=== PATIENT | male | born 1940 | race Caucasian/White ===

== ENCOUNTER 2023-10-17 13:26 | Outpatient (AMB) | payer OTHER, SELFPAY ==
--- NOTE | 2023-10-17 13:23 | HO.NEPHOV ---
Vital Signs 10/17/23 13:35 Height 6 ft Weight 222 lb 6 oz BMI 30.2 BP 124/70 Blood Pressure Location Lt brachial Position Sitting Pulse 80 Pulse Source Pulse Oximeter Pulse Oximetry (%) 94 Oxygen Delivery Method Room Air Intake Visit Reasons: CKD/ Confirmed w/ Supply Officer Required: No Accompanied by: Self / Same As Patient Allergies acetaminophen [From Percocet] Allergy (Verified 10/17/23 13:38) Unknown oxycodone [From Percocet] Allergy (Verified 10/17/23 13:38) Unknown HPI Comments Details: I had the privilege of seeing Luisito in follow-up his chronic kidney disease and hypertension. He is known to have chronic lymphocytic leukemia which has been stable. He has no night sweats, weight loss, fever, chills, rigors, nausea, vomiting, diarrhea, urinary symptoms or pedal edema. He has been compliant with his medications. His blood pressure has been at goal. There were no new active complaints at the time this office visit. 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 Renal artery stenosis CKD (chronic kidney disease) stage 3, GFR 30-59 ml/min Hypertension Surgical History (Updated 10/17/23 @ 13:41 by Khalida Hernandez MA) History of ankle surgery History of surgery on arm History of lung biopsy History of tonsillectomy and adenoidectomy History of cholecystectomy Family History (Updated 10/17/23 @ 13:43 by Khalida Hernandez MA) Sister Diabetes Father Stroke Social History Alcohol intake: current Patient Tobacco Use Status: Never used Tobacco Physical Exam Vital Signs: Last Vital Signs Pulse 80 10/17/23 13:35 BP 124/70 10/17/23 13:35 Pulse Ox 94 10/17/23 13:35 Oxygen Delivery Method Room Air 10/17/23 13:35 BMI result Body Mass Index 30.2 Const General: comfortable and no acute distress Orientation/consciousness: patient oriented x3 HEENT Head: Yes normocephalic Mouth: Normal oral and palatal mucosa present Eyes EOM: EOMs intact bilaterally Neck Neck: Yes supple Resp Auscultation: clear to auscultation bilaterally Cardio Jugular venous distension: no JVD Rate: regular rate GI Palpation (GI): Soft to palpation Auscultation: normal bowel sounds General: Yes no CVA tenderness Back/Spine/Pelvis Back: no CVA tenderness Skin General skin exam: no rashes or lesions noted Neuro General: patient oriented x3 and moves all extremities Extrem General: Yes no pedal edema Results Reviewed Nephrology Results: No Data to Display Assessment & Plan Assessment & Plan (1) CKD (chronic kidney disease) stage 3, GFR 30-59 ml/min: Code(s): N18.30 - Chronic kidney disease, stage 3 unspecified Category: Medical Qualifiers: Chronic kidney disease stage 3 subtype: stage 3a (GFR 45-59) Qualified Code(s): N18.31 - Chronic kidney disease, stage 3a (2) Hypertension: Code(s): I10 - Essential (primary) hypertension Category: Medical Qualifiers: Hypertension type: renovascular hypertension Qualified Code(s): I15.0 - Renovascular hypertension (3) Renal artery stenosis: Code(s): I70.1 - Atherosclerosis of renal artery Category: Medical (4) 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 His chronic kidney disease stage 3 is stable. His last serum creatinine is 1.46. He has no proteinuria. His blood pressure has been at goal. He does not take excess salt in the diet. He avoids nonsteroidal anti-inflammatories and maintain good hydration. He has no side effects from his current medication regimen. I did not make any medication changes today. There is no indication for Doppler of his renal arteries at this moment in time. He is on statins. Follow-up lab work ordered. Follow-up appointment given. Orders: Orders Blood Urea Nitrogen Today I15.0 - Renovascular hypertension, I70.1 - Atherosclerosis of renal artery, N18.31 - Chronic kidney disease, stage 3a Creatinine Today I15.0 - Renovascular hypertension, I70.1 - Atherosclerosis of renal artery, N18.31 - Chronic kidney disease, stage 3a Electrolytes Today I15.0 - Renovascular hypertension, I70.1 - Atherosclerosis of renal artery, N18.31 - Chronic kidney disease, stage 3a Coding Level of Care Code Est Pt Level 4 (30102) Diagnoses Stage 3a chronic kidney disease N18.31 Chronic kidney disease stage 3 subtype: stage 3a (GFR 45-59) Renovascular hypertension I15.0 Hypertension type: renovascular hypertension Renal artery stenosis I70.1 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
[2023-10-17 13:35] VITALS: BP 124/70; PULSE 80; O2SAT 94; BMI 30.2
== END 2023-10-17 14:07 | disposition home or self-care (01) ==
PROVIDERS: Visit Provider Internal Medicine Nephrology
DX: N18.31 Chronic kidney disease, stage 3a (principal); I15.0 Renovascular hypertension; I70.1 Atherosclerosis of renal artery
CPT/HCPCS: 99214

== ENCOUNTER → 2023-10-17 13:26 | Outpatient (BNVA) | payer OTHER, SELFPAY | PROVIDERS: Visit Provider Internal Medicine Nephrology ==

== ENCOUNTER 2024-05-14 11:50 | Outpatient (AMB) | payer OTHER, SELFPAY ==
--- NOTE | 2024-05-14 11:53 | HO.NEPHOV_ITS ---
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 He is known to have chronic lymphocytic leukemia which has been stable. He has no night sweats, weight loss, fever, chills, rigors, nausea, vomiting, diarrhea, urinary symptoms or pedal edema. He has been compliant with his medications. His blood pressure has been at goal. He recently had COVID and took Paxalovid. He has lost some weight during that time. There were no new active complaints at the time this office visit. 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 Renal artery stenosis CKD (chronic kidney disease) stage 3, GFR 30-59 ml/min Hypertension Surgical History History of ankle surgery History of surgery on arm History of lung biopsy History of tonsillectomy and adenoidectomy History of cholecystectomy Family History Sister Diabetes Father Stroke Social History Alcohol intake: current Patient Tobacco Use Status: Never used Tobacco Review of Systems Const All systems reviewed & are unremarkable except as noted in HPI and below Physical Exam Const General: comfortable and no acute distress Orientation/consciousness: patient oriented x3 HEENT Head: Yes normocephalic Mouth: Normal oral and palatal mucosa present Eyes EOM: EOMs intact bilaterally Neck Neck: Yes supple Resp Auscultation: clear to auscultation bilaterally Cardio Jugular venous distension: no JVD Rate: regular rate GI Palpation (GI): Soft to palpation Auscultation: normal bowel sounds General: Yes no CVA tenderness Back/Spine/Pelvis Back: no CVA tenderness Skin General skin exam: no rashes or lesions noted Neuro General: patient oriented x3 and moves all extremities Extrem General: Yes no pedal edema Results Reviewed Nephrology Results: No Data to Display Assessment & Plan Assessment & Plan (1) 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 His chronic kidney disease stage 3 is stable. He has no proteinuria. His blood pressure has been at goal. He does not take excess salt in the diet. He avoids nonsteroidal anti- inflammatories and maintain good hydration. He has no side effects from his current medication regimen. I did not make any medication changes today. There is no indication for Doppler of his renal arteries at this moment in time. He is on statins. Follow-up lab work ordered. Orders: Orders Creatinine 6 Months I15.0 - Renovascular hypertension, I70.1 - Atherosclerosis of renal artery, N18.31 - Chronic kidney disease, stage 3a Calcium 6 Months I15.0 - Renovascular hypertension, I70.1 - Atherosclerosis of renal artery, N18.31 - Chronic kidney disease, stage 3a Blood Urea Nitrogen 6 Months I15.0 - Renovascular hypertension, I70.1 - Atherosclerosis of renal artery, N18.31 - Chronic kidney disease, stage 3a Electrolytes 6 Months I15.0 - Renovascular hypertension, I70.1 - Atherosclerosis of renal artery, N18.31 - Chronic kidney disease, stage 3a Protein Creatinine Ratio, Ur 6 Months I15.0 - Renovascular hypertension, I70.1 - Atherosclerosis of renal artery, N18.31 - Chronic kidney disease, stage 3a Coding Level of Care Code Est Pt Level 4 (82556) Diagnoses 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
[2024-05-14 11:55] VITALS: BP 102/60; PULSE 87; O2SAT 91; BMI 29.3
== END 2024-05-14 12:07 | disposition home or self-care (01) ==
PROVIDERS: Visit Provider Internal Medicine Nephrology
DX: I70.1 Atherosclerosis of renal artery (principal); I12.9 Hypertensive chronic kidney disease with stage 1 through stage 4 chronic kidney disease, or unspecified chronic kidney disease; N18.31 Chronic kidney disease, stage 3a
CPT/HCPCS: 99214

== ENCOUNTER → 2024-05-14 11:50 | Outpatient (BNVA) | payer OTHER, SELFPAY | PROVIDERS: Visit Provider Internal Medicine Nephrology ==

== ENCOUNTER 2024-11-24 10:54 | Outpatient (AMB) | payer OTHER, SELFPAY ==
[2024-11-24 11:13] VITALS: BP 118/74; PULSE 70; O2SAT 93; BMI 28.9
--- NOTE | 2024-11-24 11:13 | HO.NEPHOV_ITS ---
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 He is known to have chronic lymphocytic leukemia which has been stable. He has no night sweats, weight loss, fever, chills, rigors, nausea, vomiting, diarrhea, urinary symptoms or pedal edema. He has been compliant with his medications. His blood pressure has been at goal. He recently had COVID and took Paxalovid. He has lost some weight during that time. There were no new active complaints at the time this office visit. 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 Renal artery stenosis CKD (chronic kidney disease) stage 3, GFR 30-59 ml/min Hypertension Surgical History History of ankle surgery History of surgery on arm History of lung biopsy History of tonsillectomy and adenoidectomy History of cholecystectomy Family History Sister Diabetes Father Stroke Social History Alcohol intake: current Patient Tobacco Use Status: Never used Tobacco Review of Systems Const All systems reviewed & are unremarkable except as noted in HPI and below Physical Exam Vital Signs: Last Vital Signs Pulse 70 11/24/24 11:13 BP 118/74 11/24/24 11:13 Pulse Ox 93 11/24/24 11:13 Oxygen Delivery Method Room Air 11/24/24 11:13 BMI result Body Mass Index 28.9 Const General: comfortable and no acute distress Orientation/consciousness: patient oriented x3 HEENT Head: Yes normocephalic Mouth: Normal oral and palatal mucosa present Eyes EOM: EOMs intact bilaterally Neck Neck: Yes supple Resp Auscultation: clear to auscultation bilaterally Cardio Jugular venous distension: no JVD Rate: regular rate GI Palpation (GI): Soft to palpation Auscultation: normal bowel sounds General: Yes no CVA tenderness Back/Spine/Pelvis Back: no CVA tenderness Skin General skin exam: no rashes or lesions noted Neuro General: patient oriented x3 and moves all extremities Extrem General: Yes no pedal edema Results Reviewed Nephrology Results: No Data to Display Assessment & Plan Assessment & Plan (1) 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: Code(s): I70.1 - Atherosclerosis of renal artery Category: Medical (2) Renal artery stenosis: Code(s): I70.1 - Atherosclerosis of renal artery Category: Medical (3) CKD (chronic kidney disease) stage 3, GFR 30-59 ml/min: Code(s): N18.30 - Chronic kidney disease, stage 3 unspecified Category: Medical Qualifiers: Chronic kidney disease stage 3 subtype: stage 3a (GFR 45-59) Qualified Code(s): N18.31 - Chronic kidney disease, stage 3a (4) Hypertension: Code(s): I10 - Essential (primary) hypertension Category: Medical Qualifiers: Hypertension type: renovascular hypertension Qualified Code(s): I15.0 - Renovascular hypertension Plan 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 His chronic kidney disease stage 3 is stable. He has no proteinuria. His blood pressure has been at goal. He does not take excess salt in the diet. He avoids nonsteroidal anti- inflammatories and maintain good hydration. He has no side effects from his current medication regimen. I did not make any medication changes today. There is no indication for Doppler of his renal arteries at this moment in time. He is on statins. Follow-up lab work ordered. 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
--- OUTSIDE RECORDS SUMMARY | 2024-11-24 12:24 | XMS_ITS | Clinical Summary ---
Author Organization [facility] Address [address] [place] [address] Phone Care Team Providers Care Hazardous Materials Tanker Driver Name Role Phone Kiko Shanks MD Primary Care Provider [phone] Allergies Active Allergy Reactions Criticality Noted Date Comments Oxycodone-Acetaminophen 04/16/2019 Medications aspirin 81 mg EC tablet Take 81 mg by mouth daily. Active calcium carbonate-vitamin D3 600 mg-10 mcg (400 unit) chewable tablet Chew 1 tablet by mouth 3 (three) times a day with meals. Active carvediloL (COREG) 3.125 mg tablet Take 3.125 mg by mouth 2 (two) times a day with meals. Active glucosamine simon 2KCl-chondroit 500-400 mg tablet Take 1 tablet by mouth 2 (two) times a day. Active magnesium 200 mg tablet Take 200 mg by mouth daily. Active multivit-min/iron /folic acid/K (ADULTS MULTIVITAMIN ORAL) Take by mouth. Active rosuvastatin (CRESTOR) 10 mg tablet Take 10 mg by mouth daily. Active cholecalciferol (VITAMIN D-3) 25 mcg (1,000 unit) tablet Take 1,000 Units by mouth daily. Active Active Problems Problem Noted Date Diagnosed Date Essential hypertension 12/27/2021 Hydronephrosis of left kidney 12/27/2021 Overview (07/11/2022): Surgery Dr Bauer, 2004 Renal artery stenosis ([facility] V24) 12/27/2021 Stage 3a chronic kidney disease ([facility] V24, [facility]/HCC V28) 12/27/2021 CLL (chronic lymphocytic edyta kemia) ([facility] V24, [facility] V28) 04/16/2019 Encounters Date Type Department Care Team Description 09/01/2024 11:00 AM EDT Office Visit [facility] Hematology Oncology [address] [place] [address] Candida Altamirano MD CLL (chronic lymphocytic leukemia) ([facility] V24, [facility] V28) (Primary Dx); Stage 3a chronic kidney disease ([facility] V24, [facility] V28); Renal artery stenosis ([facility] V24) from Last 3 Months Immunizations Name Administration Dates Next Due Pfizer SARS-CoV-2 COVID-19, mRNA, LNP-S, preservative free 08/11/2020,07/21/2020 Medical History Medical History Date Comments CLL (chronic lymphocytic edyta kemia) ([facility] V24, [facility] V28) DX:CLL (chronic lymphocytic leukemia) ([facility]) Chronic kidney disease DX:Chroni c kidney disease Hypertension DX:Hypertension Social History Tobacco Use Types Packs/Day Years Used Date Smoking Tobacco: Former Cigarettes Q uit: 06/10/2008 Smokeless Tobacco: Never Tobacco Cessation:Counseling Given: Not Answered Alcohol Use Standard Drinks/Week Comments Yes 0 (1 standard drink = 0.6 oz pur e alcohol) Sex and Gender Information Value Date Recorded Sex Assigned at Not on file Legal Sex Male 6:13 AM EST Gender Identity Not on file Sexual Orientation Not on file Obstetrics History Last Filed Vital Signs Vital Sign Reading Time Taken Comments Blood Pressure 134/71 09/01/2024 10:56 AM EDT Pulse 70 09/01/2024 10:56 AM EDT Temperature 36.2 ??C (97.2 ??F) 09/01/2024 10:56 AM E DT Respiratory Rate - - Oxygen Saturation 94% 09/01/2024 10:56 AM EDT Inhaled Oxygen Concentration - - Weight 97.5 kg (215 lb) 09/01/2024 10:56 AM EDT Height 182.9 cm (6') 09/01/2024 10:56 AM EDT Body Mass Index 29.16 09/01/2024 10:56 AM EDT Plan of Treatment Upcoming Encounters Date Type Department Care Team (Late st Contact Info) Description 03/04/2025 10:30 AM EDT Office Visit [facility] Hematology Oncology [address] [place] [id number] Candida Altamirano MD [address] [place] [address] Health Maintenance Due Date Last Done Comments Zoster Vaccines (2 of 2) 06/11/2018 04/16/2018 Cholesterol Screening (Lipid Panel) 05/18/2022 Depression Screening 05/18/2022 Falls Risk Assessment 05/18/2022 Social Influencers of Health Screening 05/18/2022 Medicare Annual Wellness Visit 12/26/2023 12/25/2022 COVID-19 Vaccine ( season) 2024 03/26/2022, 09/26/2021, 02/02/2021, Additional history exists Hypertension/CHF/CAD Annual BMP Blood Test 08/24/2025 08/24/2024, 06/06/2023, 08/12/2021 DTaP,Tdap,and Td Vaccines (2 - Td or Tdap) 02/22/2033 02/22/2023 Pneumococcal Vaccine: 50+ Years Completed 12/25/2022, 07/11/2009 RSV Immunization Adult Patients Completed 03/11/2023 Influenza Vaccine Completed 03/09/2024, , 02/28/2022, Additional history exists HIB Vaccines Aged Out No longer eligi ble based on patient's age to complete this topic HPV Vaccines Aged Out No longer eligi ble based on patient's age to complete this topic Hepatitis A Vaccines Aged Out No long er eligible based on patient's age to complete this topic Hepatitis B Vaccines Aged Out No long er eligible based on patient's age to complete this topic IPV Vaccines Aged Out No longer eligi ble based on patient's age to complete this topic MMR Vaccines Aged Out No longer eligi ble based on patient's age to complete this topic Meningococcal ACWY Vaccine Aged Out N o longer eligible based on patient's age to complete this topic Meningococcal B Vaccine Aged Out No l onger eligible based on patient's age to complete this topic RSV Immunization Patients Under 20 months Aged Out No longer eligible based on patient's age to complete this topic Varicella Vaccines Aged Out No longer eligible based on patient's age to complete this topic Procedures Procedure Name Priority Date/Time Associated Diagnosis Comments MANUAL DIFFERENTIAL - SYSMEX WAM Routine 08/24/2024 8:39 AM EDT Chronic lymphoid leukemia, without mention of having achieved remission(204.10) ([facility] V24, [facility] V28) CBC WITH AUTO DIFFERENTIAL Routine 08/24/2024 8:39 AM EDT Chronic lymphoid leukemia, without mention of having achieved remission(204.10) ([facility] V24, [facility] V28) CBC AND DIFFERENTIAL Routine 08/24/2024 8:39 AM EDT Chronic lymphoid leukemia, without mention of having achieved remission(204.10) ([facility] V24, [facility] V28) IMMUNOGLOBULIN IGG Routine 08/24/2024 8: 39 AM EDT Chronic lymphoid leukemia, without mention of having achieved remission(204.10) ([facility] V24, [facility] V28) LACTATE DEHYDROGENASE Routine 08/24/2024 8:39 AM EDT Chronic lymphoid leukemia, without mention of having achieved remission(204.10) ([facility] V24, [facility] V28) COMPREHENSIVE METABOLIC PANEL Routine 08/24/2024 8:39 AM EDT Chronic lymphoid leukemia, without mention of having achieved remission(204.10) ([facility] V24, [facility] V28) from Last 3 Months Results * (ABNORMAL) Manual differential (08/24/2024 8:39 AM EDT) Neutrophils % 30.0 % LAB HEMETOLOGY METHOD 08/24/2024 1:[address] [facility] Lymphocytes % 64.0 % LAB HEMETOLOGY METHOD 08/24/2024 1:[address] [facility] Monocytes % 4.0 % LAB HEMETOLOGY METHOD 08/24/2024 1:[address] [facility] Eosinophils % 3.0 % LAB HEMETOLOGY METHOD 08/24/2024 1:[address] [facility] Basophils % 0.0 % LAB HEMETOLOGY METHOD 08/24/2024 1:[address] [facility] Neutrophils Absolute Manual 2.82 1.50 - 7.00 K/mcL LAB HEMETOLOGY METHOD 08/24/2024 1:[address] [facility] Lymphocytes Absolute 6.02(H) 1.00 - 5.00 K/mcL LAB HEMETOLOGY METHOD 08/24/2024 1:[address] [facility] Monocytes Absolute Manual 0.38 0.20 - 1.00 K/mcL LAB HEMETOLOGY METHOD 08/24/2024 1:[address] [facility] Eosinophils Absolute Manual 0.28 0.00 - 0.50 K/mcL LAB HEMETOLOGY METHOD 08/24/2024 1:[address] [facility] Basophils Absolute Manual 0.00 0.00 - 0.20 K/mcL LAB HEMETOLOGY METHOD 08/24/2024 1:[address] [facility] Rbc Morphology See comment( A) Consistent with indices, Normal for [place] LAB HEMETOLOGY METHOD 08/24/2024 1:[address] [facility] Comment:RBC: Morphology agre es with CBC Platelet Morphology - WAM See Note(A) Normal LAB HEMETOLOGY METHOD 08/24/2024 1:[address] [facility] Comment:PLT: Normal Blood Venous blood specimen / Unknown Venipuncture / Unknown 08/24/2024 8:39 AM EDT 08/24/2024 11:16 AM EDT us Candida Altamirano MD LAB BLOOD ORDERABLE S Final Result [facility] [address] [place] [address], [place] [phone] * CBC auto differential (08/24/2024 8:39 AM EDT) [facility] WBC 9.4 4.8 - 10.8 K/mcL LAB HEMETOLOGY METHOD 08/24/2024 1:[address] [facility] RBC 4.80 4.50 - 5.50 M/mcL LAB HEMETOLOGY METHOD 08/24/2024 1:[address] [facility] Hemoglobin 14.5 13.5 - 17.5 g/dL LAB HEMETOLOGY METHOD 08/24/2024 1:[address] [facility] Hematocrit 44.6 42.0 - 54.0 % LAB HEMETOLOGY METHOD 08/24/2024 1:[address] [facility] MCV 93.1 79.0 - 98.0 FL LAB HEMETOLOGY METHOD 08/24/2024 1:[address] [facility] MCH 30.3 27.0 - 32.0 pcg LAB HEMETOLOGY METHOD 08/24/2024 1:[address] [facility] MCHC 32.5 32.0 - 37.0 g/dL LAB HEMETOLOGY METHOD 08/24/2024 1:[address] [facility] RDW 12.3 11.0 - 15.0 % LAB HEMETOLOGY METHOD 08/24/2024 1:[address] [facility] Platelets 201 130 - 400 K/mcL LAB HEMETOLOGY METHOD 08/24/2024 1:[address] [facility] MPV 9.7 7.0 - 11.0 FL LAB HEMETOLOGY METHOD 08/24/2024 1:[address] [facility] NRBC 0.0 <1.0 % LAB HEMETOLOGY METHOD 08/24/2024 1:56 PM EDT [facility] NRBC Absolute 0.00 <0.10 K/mcL LAB HEMETOLOGY METHOD 08/24/2024 1:[address] [facility] Blood Venous blood specimen / Unknown Venipuncture / Unknown 08/24/2024 8:39 AM EDT 08/24/2024 11:16 AM EDT us Candida Altamirano MD LAB BLOOD ORDERABLE S Final Result Performing Organization Address [facility]/ZIP Co de Phone Number [facility] [address] [place] [address], [place] [phone] * Lactate dehydrogenase (08/24/2024 8:39 AM EDT) [facility] LDH 139 120 - 246 unit/L LAB CHEMISTRY METHOD 08/24/2024 12:[address] [facility] Blood Venous blood specimen / Unknown Venipuncture / Unknown 08/24/2024 8:39 AM EDT 08/24/2024 11:17 AM EDT us Candida Altamirano MD LAB BLOOD ORDERABLE S Final Result Performing Organization Address [facility] de Phone Number [facility] [address] [place] [address], [place] [phone] * Immunoglobulin IgG (08/24/2024 8:39 AM EDT) [facility] Total IgG 597 549 - 1,584 mg/dL LAB CHEMISTRY METHOD 08/24/2024 12:[address] [facility] Blood Venous blood specimen / Unknown Venipuncture / Unknown 08/24/2024 8:39 AM EDT 08/24/2024 11:17 AM EDT us Candida Altamirano MD LAB BLOOD ORDERABLE S Final Result Performing Organization Address City/[facility]/ZIP Co de Phone Number [facility] [address] [place] [address], * (ABNORMAL) Comprehensive metabolic panel (08/24/2024 8:39 AM EDT) Sodium 141 133 - 145 mmol/L LAB CHEMISTRY METHOD 08/24/2024 12:[address] [facility] Potassium 4.6 3.5 - 5.5 mmol/L LAB CHEMISTRY METHOD 08/24/2024 12:[address] [facility] Chloride 103 96 - 110 mmol/L LAB CHEMISTRY METHOD 08/24/2024 12:48 PM [facility] CO2 33(H) 21 - 32 mmol/L LAB CHEMISTRY METHOD 08/24/2024 12:48 PM [facility] Anion Gap 5 3 - 11 LAB CHEMISTRY METHOD 08/24/2024 12:48 PM [facility] Glucose 88 70 - 100 mg/dL LAB CHEMISTRY METHOD 08/24[facility]2024 12:[facility] BUN 21 5 - 25 mg/dL LAB CHEMISTRY METHOD 08/24/2024 12:48 PM [facility] Creatinine 1.43(H) 0.70 - 1.30 mg/dL LAB CHEMISTRY METHOD 08/24/2024 12:48 [facility] eGFR 48(L) >=60 mL/min/1. 73m2 LAB CHEMISTRY METHOD 08/24/2024 12:48 PM [facility] Comment:Calculation based on the??Chronic Kidney Disease Epidemiology Collaboration (CKD-EPI) equation refit??without adjustment for race. BUN/Creatinine Ratio 14.7 LAB CHEMISTRY METHOD 08/24/2024 12:48 PM [facility] Calcium 9.2 8.5 - 10.5 mg/dL LAB CHEMISTRY METHOD 08/24/2024 12:48 PM [facility] AST (SGOT) 11 10 - 42 unit/L LAB CHEMISTRY METHOD 08/24/2024 12:[address] [facility] ALT (SGPT) 18 10 - 60 unit/L LAB CHEMISTRY METHOD 08/24/2024 12:[address] [facility] Alkaline Phosphatase 59 42 - 121 unit/L LAB CHEMISTRY METHOD 08/24/2024 12:[address] [facility] Total Protein 5.8(L) 6.0 - 8.0 g/dL LAB CHEMISTRY METHOD 08/24/2024 12:[address] [facility] Albumin 3.5 3.2 - 5.0 g/dL LAB CHEMISTRY METHOD 08/24/2024 12:[address] [facility] Total Bilirubin 0.6 0.0 - 1.4 mg/dL LAB CHEMISTRY METHOD 08/24/2024 12:[address] [facility] Blood Venous blood specimen / Unknown Venipuncture / Unknown 08/24/2024 8:39 AM EDT 08/24/2024 11:17 AM EDT Subramjailene Altamirano MD LAB BLOOD ORDERABLE S Final Result [facility] [address] [place] [address], from Last 3 Months Insurance [facility] MEDICARE MEDICARE Care Teams Hazardous Materials Tanker Driver Relationship Specialty Start Date End Date Kiko Shanks MD [address] PCP - General Internal Medicine 04/16/19
== END 2024-11-24 11:37 | disposition home or self-care (01) ==
LOC: HO.HKAS 10:54
PROVIDERS: Visit Provider Internal Medicine Nephrology
DX: I70.1 Atherosclerosis of renal artery (principal); I15.0 Renovascular hypertension; N18.31 Chronic kidney disease, stage 3a
CPT/HCPCS: 99214

== ENCOUNTER → 2024-11-24 10:54 | Outpatient (BNVA) | payer OTHER, SELFPAY | PROVIDERS: Visit Provider Internal Medicine Nephrology | DX: N18.31 Chronic kidney disease, stage 3a (principal); I15.0 Renovascular hypertension; I70.1 Atherosclerosis of renal artery ==

== ENCOUNTER 2025-05-27 10:54 | Outpatient (AMB) | payer OTHER, SELFPAY ==
--- NOTE | 2025-05-27 10:57 | HO.NEPHOV ---
Vital Signs 05/27/25 11:00 Height 6 ft Weight 211 lb 8 oz BMI 28.7 BP 110/70 Blood Pressure Location Lt brachial Position Sitting Pulse 82 Pulse Source Pulse Oximeter Pulse Oximetry (%) 96 Oxygen Delivery Method Room Air Intake Visit Reasons: 6m follow up-[facility] Loan Servicing Specialist Required: No Accompanied by: Self / Same As Patient Allergies acetaminophen (From Percocet) Allergy (Verified 05/27/25 11:00) Unknown oxycodone (From Percocet) Allergy (Verified 05/27/25 11:00) Unknown HPI Comments Details: Luisito was seen in follow-up his chronic kidney disease and hypertension. He is known to have chronic lymphocytic leukemia which has been stable. He has no night sweats, weight loss, fever, chills, rigors, nausea, vomiting, diarrhea, urinary symptoms or pedal edema. He has been compliant with his medications. His blood pressure has been at goal. There were no new active complaints at the time this office visit. 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 Renal artery stenosis CKD (chronic kidney disease) stage 3, GFR 30-59 ml/min Hypertension Surgical History History of ankle surgery History of surgery on arm History of lung biopsy History of tonsillectomy and adenoidectomy History of cholecystectomy Family History Sister Diabetes Father Stroke Social History Alcohol intake: current Patient Tobacco Use Status: Never used Tobacco Review of Systems Const All systems reviewed & are unremarkable except as noted in HPI and below Physical Exam Const General: comfortable and no acute distress Orientation/consciousness: patient oriented x3 HEENT Head: Yes normocephalic Mouth: Normal oral and palatal mucosa present Eyes EOM: EOMs intact bilaterally Neck Neck: Yes supple Resp Auscultation: clear to auscultation bilaterally Cardio Jugular venous distension: no JVD Rate: regular rate GI Palpation (GI): Soft to palpation Auscultation: normal bowel sounds General: Yes no CVA tenderness Back/Spine/Pelvis Back: no CVA tenderness Skin General skin exam: no rashes or lesions noted Neuro General: patient oriented x3 and moves all extremities Extrem General: Yes no pedal edema Assessment & Plan Assessment & Plan (1) Hypertension: Code(s): I10 - Essential (primary) hypertension Category: Medical Qualifiers: Hypertension type: renovascular hypertension Qualified Code(s): I15.0 - Renovascular hypertension (2) Renal artery stenosis: Code(s): I70.1 - Atherosclerosis of renal artery Category: Medical (3) CKD (chronic kidney disease) stage 3, GFR 30-59 ml/min: Code(s): N18.30 - Chronic kidney disease, stage 3 unspecified Category: Medical Qualifiers: Chronic kidney disease stage 3 subtype: stage 3a (GFR 45-59) Qualified Code(s): N18.31 - Chronic kidney disease, stage 3a (4) 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 His chronic kidney disease stage 3 is stable. He has no proteinuria. His blood pressure has been at goal. He does not take excess salt in the diet. He avoids nonsteroidal anti-inflammatories and maintain good hydration. He has no side effects from his current medication regimen. I did not make any medication changes today. There is no indication for Doppler of his renal arteries at this moment in time. He is on statins. Follow-up lab work ordered. Orders: Orders Creatinine 6 Months I15.0 - Renovascular hypertension, N18.31 - Chronic kidney disease, stage 3a Phosphorus 6 Months I15.0 - Renovascular hypertension, N18.31 - Chronic kidney disease, stage 3a Electrolytes 6 Months I15.0 - Renovascular hypertension, N18.31 - Chronic kidney disease, stage 3a Calcium 6 Months I15.0 - Renovascular hypertension, N18.31 - Chronic kidney disease, stage 3a Blood Urea Nitrogen 6 Months I15.0 - Renovascular hypertension, N18.31 - Chronic kidney disease, stage 3a Vitamin D 25-OH Total 6 Months I15.0 - Renovascular hypertension, N18.31 - Chronic kidney disease, stage 3a Parathyroid Hormone Intact 6 Months I15.0 - Renovascular hypertension, N18.31 - Chronic kidney disease, stage 3a Coding Level of Care Code Est Pt Level 4 (85717) Diagnoses Renovascular hypertension I15.0 Hypertension type: renovascular hypertension Renal artery stenosis I70.1 Stage 3a chronic kidney disease N18.31 Chronic kidney disease stage 3 subtype: stage 3a (GFR 45-59) 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
[2025-05-27 11:00] VITALS: BP 110/70; PULSE 82; O2SAT 96; BMI 28.7
--- OUTSIDE RECORDS SUMMARY | 2025-05-27 14:05 | XMS_ITS | Clinical Summary ---
Author Organization [facility] Prior to 11/07/24 Address [address] [place] [address] Care Team Providers Care Mold Maker Name Role Phone Kiko Shanks MD Primary Care Provider [phone] Allergies Active Allergy Reactions Criticality Noted Date Comments Oxycodone-Acetaminophen 04/16/2019 Medications Medication Sig Dispensed Refills Start Date End Date Status carvedilol (COREG) 3.125 MG tablet Take 3.125 mg by mouth 2 (two) times a day with meals. 0 Active vitamin D3 (VITAMIN D3) 25 MCG (1000 UT) tablet Take 1,000 Units by mouth daily. 0 Active Calcium Carbonate-Vitamin D (CALCIUM 600/VITAMIN D) 600-400 MG-UNIT per chew tablet Chew 1 tablet by mouth 3 (three) times a day with meals. 0 Active aspirin EC 81 MG tablet Take 81 mg by mouth daily. 0 Active Multiple Vitamins-Minerals (MULTIVITAMIN ADULTS PO) Take by mouth. 0 Active rosuvastatin (CRESTOR) tablet 10 mg Take 10 mg by mouth daily. 0 Active glucosamine-chondroiti n 500-400 MG tablet Take 1 tablet by mouth 2 (two) times a day. 0 Active Magnesium 200 MG TABS Take 200 mg by mouth daily. 0 Active Active Problems Problem Noted Date Diagnosed Date Essential hypertension 12/27/2021 Renal artery stenosis 12/27/2021 Hydronephrosis of left kidney 12/27/2021 Overview: Surgery Dr Bauer, 2004 Stage 3a chronic kidney disease 12/27/2021 CLL (chronic lymphocytic leukemia) 04/16/2019 Social History Tobacco Use Types Packs/Day Years Used Date Smoking Tobacco: Former Cigarettes Q uit: 2009 Smokeless Tobacco: Never Alcohol Use Standard Drinks/Week Comments Yes 0 (1 standard drink = 0.6 oz pur e alcohol) Sex and Gender Information Value Date Recorded Sex Assigned at Not on file Gender Identity Not on file Sexual Orientation Not on file Job Start Date Occupation Industry Not on file Not on file Not on file Last Filed Vital Signs Vital Sign Reading Time Taken Comments Blood Pressure 135/73 03/06/2024 10:50 AM EDT Pulse 100 03/06/2024 10:50 AM EDT Temperature 36.4 C (97.6 F) 03/06/2024 10:50 AM EDT Respiratory Rate - - Oxygen Saturation 96% 03/06/2024 10:50 AM EDT Inhaled Oxygen Concentration - - Weight 97.5 kg (215 lb) 03/06/2024 10:50 AM EDT Height 182.9 cm (6') 03/06/2024 10:50 AM EDT Body Mass Index 29.16 03/06/2024 10:50 AM EDT Plan of Treatment Health Maintenance Due Date Last Done Comments Depression Screening 1950 BMI Counseling 1956 Preventative Health Evaluation 1956 DTap / Tdap / Td (1 - Tdap) 1957 Shingrix-Zoster Vaccine (1 o f 2) 1957 Fall Risk Assessment 12/16/2003 Pneumococcal Vaccine (2 of 2 - PCV) 07/11/2010 07/11/2009 RSV Adult > 60+ Yrs or (1 - 1-dose 75+ series) 2013 COVID-19 Vaccine (3 - Pfizer risk series) 09/08/2020 08/11/2020, 07/21/2020 Influenza Vaccine (#1) 2025 02/28/2022 Hepatitis B Vaccines Aged Out No long er eligible based on patient's age to complete this topic RSV Ped < 20 months Aged Out No longe r eligible based on patient's age to complete this topic Care Teams Mold Maker Relationship Specialty Start Date End Date Kiko Shanks MD [address] [place] [address] PCP - General Internal Medicine 04/16/19
--- OUTSIDE RECORDS SUMMARY | 2025-05-27 14:05 | XMS_ITS | Clinical Summary ---
Author Organization [facility] Address [address] [facility] [address] [place] [address] Phone Care Team Providers Care Educational Technology Specialist Name Role Phone Kiko Shanks MD Primary Care Provider [phone] Allergies Active Allergy Reactions Criticality Noted Date Comments Oxycodone-Acetaminophen 04/16/2019 Desoxycorticosterone 10/10/2021 Medications Glucosamine-Cho ndroitin 500-400 MG capsule Take 1 tablet by mouth 2 (two) times a day Active Multiple Vitamin (MULTIVITAMIN ADULT PO) Take 1 capsule by mouth 1 (one) time each day Active aspirin (ST SHWETHA) 81 MG EC tablet Take 1 tablet by mouth 1 (one) time each day Active carvedilol (COREG) 3.125 MG tablet Take 1 tablet by mouth 2 (two) times a day Active rosuvastatin (CRESTOR) 10 MG tablet Take 1 tablet by mouth 1 (one) time each day Active Magnesium 400 MG tablet Take 1 tablet by mouth 1 (one) time each day Active calcium 500 MG tablet Take 500 mg by mouth 1 (one) time each day Active cholecalciferol (VITAMIN D-3 SUPER STRENGTH) 50 MCG (2000 UT) tablet Take 2,000 Units by mouth 1 (one) time each day Active Active Problems Problem Noted Date Diagnosed Date Renal artery stenosis 04/07/2021 Hypertension 04/07/2021 Chronic kidney disease stage 3 04/06/2021 Hypertensive renal disease 04/06/2021 Chronic lymphoid leukemia, disease 04/16/2019 Immunizations Immunization Administration Dates Next Due Pfizer SARS-COV-2 08/11/2020,07/21/2020 Pneumococcal Polysaccharide 07/11/2009 Family History Medical History Relation Comments Hypertension Father Stroke Father Kidney disease Sibling 1 Diabetes Sibling 2 Relation Status Comments Father Mother Sibling 1 Sibling 2 Social History Tobacco Use Types Packs/Day Years Used Date Smoking Tobacco: Former Smokeless Tobacco: Never Tobacco Cessation:Counseling Given: No Alcohol Use Standard Drinks/Week Comments Yes 0 (1 standard drink = 0.6 oz pure alcohol) Alcoholic Drinks/day: Occasional social drink Sex and Gender Information Value Date Recorded Sex Assigned at Not on file Legal Sex Male 5:07 PM EST Gender Identity Not on file Sexual Orientation Not on file Last Filed Vital Signs Vital Sign Reading Time Taken Comments Blood Pressure 124/68 04/18/2023 3:10 PM EST Pulse 90 04/18/2023 3:10 PM EST Temperature - - Respiratory Rate - - Oxygen Saturation 92% 04/18/2023 3:10 PM EST Inhaled Oxygen Concentration - - Weight 102 kg (224 lb) 04/18/2023 3:10 PM EST Height 185.4 cm (6' 1 ) 06/14/2020 12:00 PM EST Body Mass Index 29.55 06/14/2020 12:00 PM EST Plan of Treatment Health Maintenance Due Date Last Done Comments Pneumococcal Vaccine: 50+ Ye ars (2 of 2 - PCV) 07/11/2010 07/11/2009 Influenza Vaccine (#1) 2025 02/28/2022 Pneumococcal Vaccine: Peds ( 0 to 5 Years) and At-Risk Patients (6 to 49 Years) Discontinued 07/11/2009 Hepatitis B Vaccine Aged Out No longe r eligible based on patient's age to complete this topic Insurance Medicare [facility] Medicare [facility] Care Teams Educational Technology Specialist Relationship Specialty Start Date End Date Kiko Shanks MD [address] [place] [address] PCP - General Internal Medicine 04/07/21
--- OUTSIDE RECORDS SUMMARY | 2025-05-27 14:05 | XMS_ITS | Clinical Summary ---
Author Organization [facility] Address [address] [place] [address] Phone Care Team Providers Care Pyrotechnist Name Role Phone Kiko Shanks MD Primary Care Provider [phone] Allergies Active Allergy Reactions Criticality Noted Date [...] Surgery Dr Bauer, 2004 Renal artery stenosis 12/27/2021 Stage 3a chronic kidney disease 12/27/2021 CLL (chronic lymphocytic leukemia) 04/16/2019 Encounters Date Type Department Care Team Description 05/18/2025 9:15 AM EST Lab Draw Station - [facility] [address] [phone] Essential hypertension (Primary Dx); Renal artery stenosis ([facility] V24); Hydronephrosis of left kidney; Stage 3a chronic kidney disease ([facility] V24, [facility] V28); CLL (chronic lymphocytic leukemia) ([facility] V24, [facility] V28); Chronic kidney disease (CKD) stage G3a/A1, moderately decreased glomerular filtration rate (GFR) between 45-59 mL/min/1.73 square meter and albuminuria creatinine ratio les* ([facility] V24, [facility] V28); Renovascular hypertension; Atherosclerosis of renal artery ([facility] V24) 03/04/2025 10:30 AM EDT Office Visit [facility] Hematology Oncology [address] [place] [phone] Candida Mckay MD CLL (chronic lymphocytic leukemia) ([facility] V24, [facility] V28) (Primary Dx); Stage 3a chronic kidney disease ([facility] V24, [facility] V28); Renal artery stenosis ([facility] V24); Essential hypertension from Last 3 Months Immunizations Immunization Administration Dates Next Due Pfizer SARS-CoV-2 COVID-19, mRNA, LNP-S, preservative free 08/11/2020,07/21/2020 Medical History Medical History Date Comments CLL (chronic lymphocytic edyta kemia) ([facility] V24, [facility] V28) DX:CLL (chronic lymphocytic leukemia) (HCC) Chronic kidney disease DX:Chroni c kidney disease Hypertension DX:Hypertension Social History Tobacco Use Types Packs/Day Years Used Date Smoking Tobacco: Former Cigarettes 0 Q uit: 06/10/2008 Smokeless Tobacco: Never Tobacco [...] Sign Reading Time Taken Comments Blood Pressure 137/75 03/04/2025 10:57 AM EDT Pulse 78 03/04/2025 10:57 AM EDT Temperature 36.7 C (98.1 F) 03/04/2025 10:57 AM EDT Respiratory Rate - - Oxygen Saturation 95% 03/04/2025 10:57 AM EDT Inhaled Oxygen Concentration - - Weight 96.6 kg (213 lb) 03/04/2025 10:57 AM EDT Height 182.9 cm (6') 03/04/2025 10:57 AM EDT Body Mass Index 28.89 03/04/2025 10:57 AM EDT Plan of Treatment Upcoming Encounters Date Type Department Care Team (Late st Contact Info) Description 08/26/2025 11:00 AM EDT Office Visit [facility] Hematology Oncology [address] [place] [phone] Candida Altamirano MD [address] [place] [phone] Health Maintenance Due Date Last Done Comments Zoster Vaccines (2 of 2) 06/11/2018 04/16/2018 Cholesterol Screening (Lipid Panel) 05/18/2022 Falls Risk Assessment 05/18/2022 Social Influencers of Health Screening 05/18/2022 Medicare Annual Wellness Visit 12/26/2023 12/25/2022 Depression Screening 06/10/2024 COVID-19 Vaccine ( season) 2025 03/26/2022, 09/26/2021, 02/02/2021, Additional history exists Hypertension/CHF/CAD Annual BMP Blood Test 05/18/2026 05/18/2025, 02/23/2025, 08/24/2024, Additional history exists DTaP,Tdap,and Td Vaccines (2 - Td or Tdap) 02/22/2033 02/22/2023 Pneumococcal Vaccine: 50+ Years Completed 12/25/2022, 07/11/2009 RSV Immunization Adult Patients Completed 03/11/2023 Influenza Vaccine Completed 02/18/2025, , 03/15/2023, Additional history exists HIB Vaccines Aged Out [...] Procedure Name Priority Date/Time Associated Diagnosis Comments CREATININE, SERUM Routine 05/18/2025 9:1 5 AM EST Essential hypertension Renal artery stenosis ([facility] V24) Hydronephrosis of left kidney Stage 3a chronic kidney disease ([facility]/HCC V24, CMS/HCC V28) CLL (chronic lymphocytic leukemia) (CMS/HCC V24, CMS/HCC V28) Chronic kidney disease (CKD) stage G3a/A1, moderately decreased glomerular filtration rate (GFR) between 45-59 mL/min/1.73 square meter and albuminuria creatinine ratio les* (CMS/HCC V24, CMS/HCC V28) Renovascular hypertension Atherosclerosis of renal artery (CMS/HCC V24) CALCIUM Routine 05/18/2025 9:15 AM EST Essential hypertension Renal artery stenosis (CMS/HCC V24) Hydronephrosis of left kidney Stage 3a chronic kidney disease (CMS/HCC V24, CMS/HCC V28) CLL (chronic lymphocytic leukemia) (CMS/HCC V24, CMS/HCC V28) Chronic kidney disease (CKD) stage G3a/A1, moderately decreased glomerular filtration rate (GFR) between 45-59 mL/min/1.73 square meter and albuminuria creatinine ratio les* (CMS/HCC V24, CMS/HCC V28) Renovascular hypertension Atherosclerosis of renal artery (CMS/HCC V24) BUN Routine 05/18/2025 9:15 AM EST Essential hypertension Renal artery stenosis (CMS/HCC V24) Hydronephrosis of left kidney Stage 3a chronic kidney disease (CMS/HCC V24, CMS/HCC V28) CLL (chronic lymphocytic leukemia) (CMS/HCC V24, CMS/HCC V28) Chronic kidney disease (CKD) stage G3a/A1, moderately decreased glomerular filtration rate (GFR) between 45-59 mL/min/1.73 square meter and albuminuria creatinine ratio les* (CMS/HCC V24, CMS/HCC V28) Renovascular hypertension Atherosclerosis of renal artery (CMS/HCC V24) ELECTROLYTE PANEL Routine 05/18/2025 9:1 5 AM EST Essential hypertension Renal artery stenosis (CMS/HCC V24) Hydronephrosis of left kidney Stage 3a chronic kidney disease (CMS/HCC V24, CMS/HCC V28) CLL (chronic lymphocytic leukemia) (CMS/HCC V24, CMS/HCC V28) Chronic kidney disease (CKD) stage G3a/A1, moderately decreased glomerular filtration rate (GFR) between 45-59 mL/min/1.73 square meter and albuminuria creatinine ratio les* (CMS/HCC V24, CMS/HCC V28) Renovascular hypertension Atherosclerosis of renal artery (CMS/HCC V24) PROTEIN AND CREATININE WITH RATIO, URINE Routine 05/18/2025 9:15 AM EST Essential hypertension Renal artery stenosis (CMS/HCC V24) Hydronephrosis of left kidney Stage 3a chronic kidney disease (CMS/HCC V24, CMS/HCC V28) CLL (chronic lymphocytic leukemia) (CMS/HCC V24, CMS/HCC V28) Chronic kidney disease (CKD) stage G3a/A1, moderately decreased glomerular filtration rate (GFR) between 45-59 mL/min/1.73 square meter and albuminuria creatinine ratio les* (CMS/HCC V24, CMS/HCC V28) Renovascular hypertension Atherosclerosis of renal artery (CMS/HCC V24) from Last 3 Months Results * Protein and creatinine with ratio, urine (05/18/2025 9:15 AM EST) Protein, Urine 21 mg/dL 05/18/2025 12:24 PM EST [facility] Prot/Creat, Ur 0.12 <=0.20 mg/mg creat 05/18/2025 12:24 PM EST [facility] Creatinine, Urine 177.0 mg/dL 05/18/2025 12:24 PM EST [facility] Urine Urine specimen obtained by clean catch procedure / Unknown Non-blood Collection / Unknown 05/18/2025 9:15 AM EST 05/18/2025 11:33 AM EST Uche Neri MD LAB URINE ORDERABLES Final Resul t Performing Organization Address [facility]/ZIP Co de Phone Number [facility] [address] [place] [address], * (ABNORMAL) Creatinine (05/18/2025 9:15 AM EST) Creatinine 1.61(H) 0.70 - 1.30 mg/dL 05/18/2025 12:19 PM [facility] eGFR 41(L) >=60 mL/min/1. 73m2 05/18/2025 12:19 PM EST [facility] Comment:Calculation based on the Chronic Kidney Disease Epidemiology Collaboration (CKD-EPI) equation refit without adjustment for race. Blood Venous blood specimen / Unknown Venipuncture / Unknown 05/18/2025 9:15 AM EST 05/18/2025 11:35 AM EST Uche Neri MD LAB BLOOD ORDERABLES Final Resul t [facility] [address] [place] [address], * (ABNORMAL) BUN (05/18/2025 9:15 AM EST) BUN 28(H) 5 - 25 mg/dL 05/18/2025 12:19 PM EST [facility] Blood Venous blood specimen / Unknown Venipuncture / Unknown 05/18/2025 9:15 AM EST 05/18/2025 11:35 AM EST us Uche Neri MD LAB BLOOD ORDERABLES Final Resul t Performing Organization Address City/[facility]/ZIP Co de Phone Number [facility] [address] [place] [address], [place] [phone] * Calcium (05/18/2025 9:15 AM EST) Calcium 8.8 8.5 - 10.5 mg/dL 05/18/2025 12:21 PM EST [facility] Blood Venous blood specimen / Unknown Venipuncture / Unknown 05/18/2025 9:15 AM EST 05/18/2025 11:35 AM EST us Uche Neri MD LAB BLOOD ORDERABLES Final Resul t Performing Organization Address City/[facility]/ZIP Co de Phone Number [facility] [address] [place] [address], [place] [phone] * (ABNORMAL) Electrolyte panel (05/18/2025 9:15 AM EST) Sodium 141 133 - 145 mmol/L 05/18/2025 12:16 PM [facility] Potassium 4.3 3.5 - 5.5 mmol/L 05/18/2025 12:16 PM [facility] Chloride 100 96 - 110 mmol/L 05/18/2025 12:16 PM [facility] CO2 34(H) 21 - 32 mmol/L 05/18/2025 12:16 PM EST [facility] Anion Gap 7 3 - 11 05/18/2025 12:16 PM [facility] Blood Venous blood specimen / Unknown Venipuncture / Unknown 05/18/2025 9:15 AM EST 05/18/2025 11:35 AM EST us Uche Neri MD LAB BLOOD ORDERABLES Final Resul t [place] [facility] [facility] [address] [place] [address], [place] [phone] from Last 3 Months Insurance [facility] MEDICARE MEDICARE Care Teams Pyrotechnist Relationship Specialty Start Date End Date Kiko Shanks MD [address] PCP - General Internal Medicine 04/16/19
== END 2025-05-27 11:14 | disposition home or self-care (01) ==
LOC: HO.HKAS 10:54
PROVIDERS: Visit Provider Internal Medicine Nephrology
DX: I15.0 Renovascular hypertension (principal); I70.1 Atherosclerosis of renal artery; N18.31 Chronic kidney disease, stage 3a
CPT/HCPCS: 99214